=== PATIENT | female | born 1945 | race Caucasian/White ===

== ENCOUNTER → 2018-01-28 09:08 | Outpatient (CLI) | payer OTHER, SELFPAY ==
[2018-01-28 11:11] LABS: ALT 27 U/L (12-78); AST 23 U/L (15-37); Albumin 3.8 g/dL (3.4-5.0); Alkaline Phosphatase 52 U/L (46-116); Bilirubin, Total 0.6 mg/dL (0.2-1.0); Cholesterol 166 mg/dL (50-200); HDL Cholesterol 59 mg/dL (40-60); LDL CHOLESTEROL 94 mg/dL (<100); Total Protein 7.1 g/dL (6.4-8.2); Triglyceride 77 mg/dL (30-150)
[2018-01-28 11:22] LABS: Bilirubin, Direct 0.16 mg/dL (0.00-0.20)
== END ==
PROVIDERS: PCP Family Medicine; Visit Provider Family Medicine
DX: E78.5 Hyperlipidemia, unspecified (principal)
CPT/HCPCS: 36415; 80061; 80076; 83721

== ENCOUNTER 2018-02-08 13:00 | Outpatient (RCR) | payer OTHER, SELFPAY ==
--- NOTE | 2018-01-13 12:30 | PTTR_ITS ---
DATE: 01/13/18 SUBJECTIVE: Anay reporting that she had her shingles booster shot the day after she saw me, which gave her flu like response. Because of this, she really has not been up to her HEP. She did attempt it more recently and has multiple questions, because she thinks that she is performing it wrong, otherwise, she hasn't had any remarkable R shoulder pain. Manual therapy: ([id number]). R GH joint mobilization in all planes beginning with some general gliding accessory motions all planes of the GH joint, but without limitations. Focus on end range oscillations at a grade 4, progressing to 4+ easily with MWM and distraction. Most limitation appreciated into IR where I utilize towel roll into the elbow. Sustained hold into AP direction of the GH joint and grade 3++ oscillations into IR. Complete horizontal adduction , prolonged stretching with stabilization of the scapula. Pre treatment ROM: R flexion/abduction 170, but without pain. ER full, IR 45. Post treatment flexion/abduction 180, IR is to 60 degrees. Therapeutic procedures ([id number]). HEP review with skilled cueing for proper movement pattern and lower trap recruitment, proceed with further Therex per series: 1: Prone-R GH flexion 1#, x10 and R GH abduction and extension 3#, x10. 2: L sidelying: R ER towel roll under the arm 3#, x15. 2# x10. Encourage eccentric lowering. 3: Horizontal abduction deceleration eccentric 2#, x20. Direct treatment time: 40 mins Total treatment time: 40 mins JH/dl
--- NOTE | 2018-01-19 11:20 | PTTR_ITS ---
DATE: 01/19/18 SUBJECTIVE: Pt stating that she has continued awareness of some type of discomfort on the front of her (R) humerus. She struggles to explain this to me. This is generally occurring primarily when reaching behind her back or across her body and always has a resting awareness of this.It doesn't necessarily keep her from any functional tasks but she is annoyed by its presence. OBJECTIVE: Pre Tx PROM (R) shoulder: Flexion 170* Abduction 170* with pain along the anterior humerus at end range. ER is full but with pain IR full but with no pain Post Tx ROM: Full throughout with pain dissipation primarily encouraged with AP mobilization with movement. Soft tissue palpation she does appreciate tension through the bicep and pec region. Intension appreciated particularly through the pec Non tender through the supraspinatus and infraspinatus region today and tension along the posterior capsule. Manual therapy: ([id number]). Distraction gliding with the (R) glenohumeral joint in all planes with AP grade 4 oscillations and inferior oscillations. Working into end range flexion and quadrant for oscillations at end ranges. IR mobilizations with distractions as well as IR METs and STM with deep tissue work through the (R) posterior capsule. IASTM down regulation through the (R) bicep and (R) pec. Rock Taping application of the (R) bicep fascia on stretch. Direct treatment time: 30 minutes Total treatment time: 30 minutes ASSESSMENT: Positive response to manual therapy with full mobility zoroastrianism and no pain post tx. PLAN: To initiate (R) shoulder stabilization efforts next visit with primary focus of todays visit to restore mobility. Proceed 2x per week per POC initiating ther ex.
--- NOTE | 2018-01-21 10:11 | PTTR_ITS ---
DATE: 01/21/18 SUBJECTIVE: Pt reports that she is feeling improved since last session. She states that she thinks that the tape was helpful as well. Pt states that her neck on the right side his somewhat painful today. OBJECTIVE: Manual therapy: ([id number]). Pt received scapular jiggling and AAROM into all planes. Pt was able to achieve full ROM into all planes. Pt then received down regulation throughout the biceps region. Pt then received DTM and trigger point release techniques throughout the cervical para spinals, upper trap, and posterior cuff. Pt received rock taping to the biceps while on stretch. Direct treatment time: 25 Total treatment time: 25
--- NOTE | 2018-01-27 14:17 | PTTR_ITS ---
DATE: 01/27/18 SUBJECTIVE: Notes only mild improvement. Continues to have an awareness of discomfort along anterior R shoulder, but less frequent. It does not greatly limit her basic ADL's and light activities. OBJECTIVE: KX applied to all codes N/A Manual therapy: ([id number]). R shoulder girdle: STM supraspinatus, posterior capsule, bicep muscle belly, bicep tendon, supraspinatus CFM, and pec release GH mobilization all planes, with end range AP MWM into flexion and quadrant, where she was most limited. Cross body stretching with scapular stabilization, with IR over pressure. Followed with IR oscillations at end ranage with IR MET' s. Scapulothoracic mobilization all planes ROM Pre-rx: Flexion 170* with P!, abduction 160* with P!, ER full, IR 45* with P ! ROM Post-rx: Flexion 180*, abduction full with AP mobilization pain free, ER full, IR 80* no pain. Special testing: (+) empty can, (-) Speed's, (+) Hawkin's Yuri and Neer * x Neuro Re-education - ([id number] x2): 1. R scapula protraction and retraction, in L sidelying and prone, passively x 1 minute for neurofacilitation, followed by active x 1 minute with cues needed. 2. Prone ER with abduction of 90*, AA, 0#, 10x, Active 20x, verbal cues 3. L sidelying horizontal abduction deceleration, 0#, 20x, AA and active combination, verbal cues 4. Prone, GH flexion with cues for lower trap activation Patient requires intermittent scapulothoracic passive motion and mobilization through for neurofacilitation and a great deal of verbal and manual cues for proper movement. Upregulation manipulation of lower trap throughout for proper muscle facilitation. HEP updated to include Prone ER and scapular protraction and retraction (to encourage scapular position awareness) in prone. Video was taken with patient's smart phone for home reference. Direct treatment time: 50 minutes Total treatment time: 50 minutes Assessment: Poor scapular position body awareness, making activation of scapular stabilizers, particularly lower trap and serratus difficult - contributing to ongoing supraspinatus tendonitis. I am hopeful that as we proceed with neurofacilitaiton of scapular stabilization, this will eventually result in decrease impingement of supraspinatus tendon. Plan: 2x/week for mobilization of GH and ST joints, for mobility improvement and neurofacilitation, intrinsic strengthening, and neurofacilitation exericses of ST joint.
--- NOTE | 2018-01-29 09:50 | PTTR_ITS ---
DATE: 01/29/18 SUBJECTIVE: Anay reporting that her (R) shoulder is feeling better and she feels that she is becoming much more aware of her shoulder blade position which is helping. OBJECTIVE: (R) shoulder ROM: Active reaches 165* flexion/ abduction with sensation of restriction along the lateral deltoid but no pain. IR is now symmetrical on the (L) side with no pain at end range. Movement pattern: Able to complete proper retraction and depression of the (R) shoulder blade with minimal cueing needed and able to maintain proper position of this with active glenohumeral dynamic movements. When having her perform active protraction and retraction of the scapula she is able to perform this with only minimal cueing in the side lying position as well as in prone, compared to severe cueing required prior session. Manual therapy: ([id number]). (R) glenohumeral gliding into all planes with nociceptor stimulation of the (R) glenohumeral joint with focus of AP mobs and loosening of the posterior capsule. Scap thoracic mobilizations into all planes with lift off and distraction. Soft tissue mobilization for fascial release through the cervical and posterior shoulder focusing on upper trap paraspinals. Supraspinatus and pec clearing out trigger points through the pecs, supraspinatus and posterior capsule per tension appreciated. Posterior capsule stretching performed into horizontal adduction, mobilizations performed by the glenohumeral joint into all planes utilizing AP MWM into flexion and quadrant positions. IR with grade 4++ oscillations but maintaining proper position in the glenoid. Therapeutic procedures ([id number]). * X See flow sheet: * _X_ Skilled manual cues and exercise performance * _X_ Other: For other trap serratus activation. Direct treatment time: 60 minutes Total treatment time: 60 minutes ASSESSMENT: Remarkable improvement and awareness of the (R) shoulder blade and lower trap activation and completed some up regulation techniques throughout exercise routine which seemed to help with body awareness and facilitation of proper movement pattern. She is having resulting pain reduction now with improved stability of the scapula. PLAN: Proceed 2 x per week for continued mobilization and scapular stabilization efforts.
--- NOTE | 2018-02-01 10:44 | PTTR_ITS ---
DATE: 02/01/18 OBJECTIVE: Co treatment with PT Yue Vealzquez Therapeutic procedures ([id number]). * X Provided skilled instruction in proper exercise performance: Pt completed UE strengthening and scapular stabilization ther ex as per flow sheet. Pt required tactile and vc's for correction of her posture and mechanics throughout her session. Pt was able to tolerate a slight increase in her program today. We did try and complete Q-Ped serratus ex but pt was not able to complete this due to body awareness difficulties. Direct treatment time: 30 Total treatment time: 30
--- NOTE | 2018-02-01 13:14 | PTTR_ITS ---
DATE: 02/01/18 SUBJECTIVE: Overall 75% improvement since beginning PT. She had to lift a heavy bucket over the past weekend and she was able to use her posture as best as she could but she feels that she strained her neck a little bit. She continues to have an awareness of some discomfort along the lateral deltoid. But she doesn't necessary call it a pain or discomfort it is more of a tightness. OBJECTIVE: Manual therapy: ([id number]). (R) glenohumeral joint accessory mobilization in all planes with focus of AP mobilization including end range quadrant and flexion positions for max posterior capsule stretch, cross body stretching with scapular stabilization and IR over pressure. (R) posterior capsule STM and supraspinatus trigger point release, thoracic and paraspinal release, c-spine manual traction with focus of (R) fascial stretching through the (R) c-spine and parascapular region. Articular side gliding and rotational mobilizations through the c-spine for inhibition of surrounding fascia and connected to (R) shoulder. Mobilize the (R) glenohumeral joint into all planes of motion with most restriction noted with IR but with end range grade 4 oscillations and inferior MWM of the glenohumeral joint. She eventually achieves full motion and she is then seen by Briseida Perla PTA for ther ex portion of tx per my direction. See her note. Direct treatment time: 30 minutes Total treatment time: 30 minutes
--- NOTE | 2018-02-04 09:00 | PTTR_ITS ---
DATE: 02/04/18 SUBJECTIVE: Reporting no remarkable change since last visit. Continues to have low grade awareness through the lateral posterior GH joint Manual therapy: ([id number]). Distraction of the R GH joint with gliding all planes with focus of AP direction from 0 to 90 degrees of abduction where she has the most amount of restriction. End range oscillations into flexion and quadrant position with AP sustained hold and IR end range oscillations at a grade 4 to 4+ with full motion noted. Cross body stretching with stabilization of the scapula with IR over pressure for posterior capsule stretching. L sidelying complete R scap, thoracic mobilizations, struggling with lift off of the scapula, but essentially able to complete with instrument assist. STM to the R supraspinatus and posterior capsule release, cross friction of the supraspinatus tendon. She is then seen by Briseida Perla PTA for Therex portion per my direction. (see her note for specifics) Direct treatment time: 30 mins Total treatment time: 30 mins JH/dl
--- NOTE | 2018-02-04 09:59 | PTTR_ITS ---
DATE: 02/04/18 OBJECTIVE: Co treatment with PT Yue Velazquez Therapeutic procedures ([id number]). * X Provided skilled instruction in proper exercise performance: Pt completed scapular stabilization ther ex and UE strengthening as per flow sheet. Pt requires mod vc's and tactile cueing for correction of her mechanics. Pt tried the pron serratus is a different way today and still was experiencing difficulty with posture and mechanics. Pt was able to tolerate a slight increase in he program today. Direct treatment time: 30 Total treatment time: 30
--- NOTE | 2018-02-08 10:22 | PTTR_ITS ---
DATE: 02/08/18 SUBJECTIVE: Anay stating really she feels no overall great effect from starting PT.She continues to explain this weird sensation along her R bicep region, posterior shoulder. She really has a difficult time describing it. She reports really no pain and she can be fully functional with the arm.She just appreciates something different in the R shoulder, which was not there, and also compared to her L shoulder, which is normal. She has been compliant with all of her exercises and stretching, but hasn't found them to be of great benefit. OBJECTIVE: Bilateral UE ROM is full, with the exception of R shoulder passive range into flexion quadrant and having some discomfort at end range, but with AP gliding and sustained stretching and distraction, this eventually achieves normal motion , but with continued description of something off by the pt. ER and IR WNL.Had strong capsular end feel with end range flexion and abduction/ quadrant position. Strength reveals 4/5 abduction, 4+ flexion, IR/ER 5/5. Speeds 4/5 no discomfort. Lift off 5/5 no pain. Accessory motion essentially WNL throughout moderate limitation with AP. Special test: Negative Edmondson-Yuri. Mild discomfort with Speeds and lift off , but nothing remarkable. Negative drop arm. Negative cervical Spurling and quadrant. Palpation: Essentially nontender through the R shoulder girdle. Has some muscle tension through the R upper trap, but without pain. Nontender through the bicep region or bicep tendon. Manual therapy: ([id number]).C spine distraction R cervical facet upgliding and gapping, articular side gliding to the R. R upper trap/levator scap stretching. Soft tissue work through the cervical paraspinals and thoracic paraspinals, as well as the upper trap, more for assessment of tension or other symptomatology. Mobilization of L GH joint with focus of flexion quadrant, where she is most symptomatic with AP mobilizations and distraction. Discussed POC with pt, which is documented below. She is then seen by Briseida Perla PTA per my instructions. Please see her note. Direct treatment time: 25 min Total treatment time: 25 min Assessment: Anay is having no response to PT management for treatment of some R shoulder discomfort. She is really essentially never had any pain or functional limitations, but just appreciated something different with the R arm than the L. This followed an exercise she did overhead with a theraband, which likely strained her R shoulder, but at that time, she also had severe neck pain , which was managed well with patient care provider in a short time. There could certainly be a possibility of some cervicogenic pathology, but clears out well with special testing and she has no UE screen findings. She also doesn't present with any clinical signs and symptoms of isolated shoulder pathology, but she could certainly be appreciating the beginnings of an idiopathic frozen shoulder possibly, or maybe just very mild bicep tendinitis. In either event, considering her lack of PT response, I think having her complete more of strengthening regimen and stretching for the R shoulder is appropriate as she was having more success with direct skilled one-on-one PT care, it would be more appropriate for her to continue to come for treatment. Her symptoms are not allowing for any great or any functional limitations at this time, and really aren't of great bother to her. If she finds that her symptoms become more dramatic being outside of PT, she is to return, or if she has progression of her symptoms, I feel ortho consult would be more appropriate. She agrees and she is going to continue with more of an independent program at this time and will be in contact with me if she has further questions or concerns. Plan: Pt on hold to continue more with independent regimen to see how she tolerates this. If she has regression of her condition, she is to contact me and we will resume therapy services. I will be contact with her in 1 months time to determine her status prior to D/C. STIVEN/parviz
--- NOTE | 2018-02-08 11:20 | PTTR_ITS ---
DATE: 02/08/18 OBJECTIVE: This is a co tx with PT Kaylie Velazquez please refer to her note for specifics. Therapeutic procedures ([id number]). Pt was seen by me for completion and review of HEP that was issued to her today. Pt was also issued orange tubing to complete her UE scapular stabilization exercises. Pt is going ot call if she has any issues. Direct treatment time: 15 minutes Total treatment time: 15 minutes
--- NOTE | 2018-02-08 14:00 | PTTR_ITS ---
DATE: 02/08/18 OBJECTIVE: Co Treatment with PT Yue Velazquez Therapeutic procedures ([id number]). * X HEP review: Pt was issued a HEP similar to what she was completing in clinic. Pt issued orange tubing and I reviewed all of the exercises to make sure pt understood how to complete her program. Direct treatment time: 20 Total treatment time: 20
== END 2018-02-12 23:59 | disposition home or self-care (01) ==
LOC: PT 13:00
PROVIDERS: PCP Family Medicine; Referring Provider Family Medicine; Visit Provider Family Medicine
DX: M75.21 Bicipital tendinitis, right shoulder (principal); M75.31 Calcific tendinitis of right shoulder
CPT/HCPCS: 97110; 97112; 97140

== ENCOUNTER 2018-04-12 00:54 | Outpatient (CLI) | payer OTHER, SELFPAY ==
--- NOTE | 2018-04-12 09:30 | DI.MAMMO_ITS ---
SYMPTOM/DIAGNOSIS: SCREENING, Z12.31 MAMMOGRAMS: Mammograms were interpreted according to the usual protocol including computer analysis with CAD system, tomosynthesis and C view imaging. Comparison with prior examinations. Breast density B. No masses or microcalcifications are seen. There is nothing to suggest malignancy. IMPRESSION: Negative mammogram. Routine screening is recommended. Category I. MQSA ASSESSMENT OF FINDINGS: Negative. Category 1. Patient will receive a letter notifying them of these results. BI-RADS category B. There are scattered areas of fibroglandular density.
== END 2018-04-12 01:14 ==
PROVIDERS: PCP Family Medicine; Visit Provider Family Medicine
DX: Z12.31 Encounter for screening mammogram for malignant neoplasm of breast (principal)
CPT/HCPCS: 77063; 77067

== ENCOUNTER 2019-04-19 09:01 | Outpatient (CLI) | payer MEDICARE, BC, SELFPAY ==
[2019-04-19 10:35] LABS: ALT 25 U/L (14-59); AST 20 U/L (15-37); Alkaline Phosphatase 50 U/L (46-116); Anion Gap 5.7 mmol/L (3-11); BUN 13 mg/dL (7-18); Bilirubin, Total 0.8 mg/dL (0.2-1.0); CO2 32.3 mmol/L (21.0-32.0); CREATININE 0.97 mg/dL (0.55-1.02); Calcium 9.1 mg/dL (8.5-10.1); Calculated LDL 89 mg/dL; Chloride 103 mmol/L (98-107); Cholesterol 160 mg/dL (50-200); Estimated GFR 56.29 (mL/min/1.73m2); Glucose 90 mg/dL (70-100); HDL Cholesterol 59 mg/dL (40-60); Sodium 141 mmol/L (136-145); Total Protein 7.3 g/dL (6.4-8.2); Triglyceride 61 mg/dL (30-150)
== END 2019-04-19 09:21 ==
PROVIDERS: PCP Family Medicine; Visit Provider Family Medicine
DX: I10 Essential (primary) hypertension (principal); E78.5 Hyperlipidemia, unspecified
CPT/HCPCS: 36415; 80053; 80061

== ENCOUNTER 2019-05-30 01:05 | Outpatient (CLI) | payer MEDICARE, BC, SELFPAY ==
--- NOTE | 2019-05-30 10:33 | DI.MAMMO_ITS ---
EXAM: MG MAMMO SCREENING CLINICAL HISTORY: SCREENING, Z12.31. TECHNIQUE: Full field digital CC and MLO mammographic images were obtained with 3D tomosynthesis and utilizing computer aided detection (CAD). COMPARISON: [id number]. FINDINGS: Breast density: C Masses/Architectural Distortion: None seen. Microcalcifications: No suspicious pleomorphic-type calcifications are seen. Skin Thickening/Nipple Retraction: None. Axilla: Unremarkable. IMPRESSION: 1. BI-RADS category 1, negative. No significant interval change with no specific features of maligna ncy noted. 2. Unless there is more urgent need, screening mammography is recommended, as per [employer] guidelines. BI-RADS Cat 1 - Negative Breast Density - Category C - Heterogeneously dense A negative radiographic report should not delay biopsy if a dominant or clinically suspicious mass is present. Up to ten percent of cancers are not identified on mammography. A negative report may reinforce clinical impression. Adenosis and dense breasts may obscure an underlying neoplasm. False positive reports average 6 to 10%. Patient will receive a letter notifying them of these results.
== END 2019-05-30 01:25 ==
PROVIDERS: PCP Family Medicine; Visit Provider Family Medicine
DX: Z12.31 Encounter for screening mammogram for malignant neoplasm of breast (principal)
CPT/HCPCS: 77063; 77067

== ENCOUNTER 2020-04-16 03:38 | Outpatient (CLI) | payer MEDICARE, BC, SELFPAY ==
[2020-04-16 08:02] LABS: HCT 44.9 % (36.0-46.0); MCH 30.7 pg (27.0-33.0); MCHC 33.4 % (32.0-36.0); MCV 91.8 fL (80-95); MPV 9.7 fL (8.0-11.0); Platelet Count 217 10^3/uL (130-400); RBC 4.89 10^6/uL (3.93-5.22); RDW 12.4 % (11.7-14.6); RDW-SD 41.8 fL; WBC 5.66 10^3/uL (4.4-10.8)
[2020-04-16 08:47] LABS: ALT 18 U/L (14-59); AST 19 U/L (15-37); Albumin 3.7 g/dL (3.4-5.0); Alkaline Phosphatase 46 U/L (46-116); Anion Gap 5.6 mmol/L (3-11); BUN 17 mg/dL (7-18); Bilirubin, Total 0.6 mg/dL (0.2-1.0); CO2 30.4 mmol/L (21.0-32.0); CREATININE 0.86 mg/dL (0.55-1.02); Calcium 8.7 mg/dL (8.5-10.1); Calculated LDL 87 mg/dL (<100); Chloride 103 mmol/L (98-107); Cholesterol 153 mg/dL (<200); Glucose 89 mg/dL (74-106); HDL Cholesterol 57 mg/dL (40-60); Potassium 3.9 mmol/L (3.5-5.1); Sodium 139 mmol/L (136-145); Total Protein 6.9 g/dL (6.4-8.2); Triglyceride 46 mg/dL (<150)
== END 2020-04-16 03:58 ==
PROVIDERS: PCP Family Medicine; Visit Provider Family Medicine
DX: I10 Essential (primary) hypertension (principal); R42 Dizziness and giddiness
CPT/HCPCS: 36415; 80053; 80061; 85027

== ENCOUNTER 2020-08-06 01:12 | Outpatient (CLI) | payer MEDICARE, BC, SELFPAY ==
--- NOTE | 2020-08-06 | DI.MAMMO_ITS ---
EXAM: MAMMO SCREENING CLINICAL HISTORY: SCREENING, Z12.31. TECHNIQUE: Bilateral full field digital CC and MLO mammographic images were obtained with 3D tomosyn thesis and utilizing computer aided detection (CAD). COMPARISON: Prior mammograms dating back to 2010, the most recent being May 2019. FINDINGS: Asymmetric densities and micro/macrocalcifications in both breasts are again noted. There are no spiculated masses nor malignant appearing microcalcification groups. The calcifications appear to be associated with small nodular densities as seen on 3D imaging, probably fibroadenomas. A small noncalcified nodular density inferiorly in the right breast is unchanged from prior studies. There are no new spiculated masses nor malignant-appearing microcalcification groups in either breas t there is no significant architectural distortion nor skin thickening-retraction. IMPRESSION: Stable benign findings. No radiographic evidence of malignancy. BI-RADS Category 2 - Benign Findings Breast Density - Category C - Heterogeneously dense Breast density Category C or D implies that the patient has dense breast tissue. Dense breast tissue can make it harder to find cancer on a mammogram. Dense breast tissue is also associated with an incr eased risk of breast cancer. This information about the result of the mammogram report was provided to the patient to raise their awareness. Use this report when you speak with the patient about their risks for breast cancer, which includes their family history. At that time, you may recommend additional screening tests (Ultrasoun d or MRI) as these tests may add significant information. A negative radiographic report should not delay biopsy if a dominant or clinically suspicious mass is present. Up to ten percent of cancers are not identified on mammography. A negative report may reinforce clinical impression. Adenosis and dense breasts may obscure an underlying neoplasm. False positive reports average 6 to 10%. Patient will receive a letter notifying them of these results.
== END 2020-08-06 01:13 ==
LOC: DI 01:13
PROVIDERS: PCP Family Medicine; Visit Provider Family Medicine
DX: Z12.31 Encounter for screening mammogram for malignant neoplasm of breast (principal)
CPT/HCPCS: 77063; 77067